=== PATIENT | female | born 1950 | race Caucasian/White ===

== ENCOUNTER 2018-06-26 12:09 | Outpatient (CLI) | payer OTHER | END 2018-06-26 15:06 | disposition home or self-care (01) | LOC: RAD 12:09 | DX: M54.2 Cervicalgia (principal); M54.6 Pain in thoracic spine; M54.5 Low back pain; M99.05 Segmental and somatic dysfunction of pelvic region ==

== ENCOUNTER → 2019-10-07 | Outpatient (CLI) | payer OTHER | END | disposition home or self-care (01) | LOC: RAD 14:45 | DX: M54.2 Cervicalgia (principal); M75.41 Impingement syndrome of right shoulder; M75.42 Impingement syndrome of left shoulder ==

== ENCOUNTER → 2021-08-16 | Outpatient (CLI) | payer OTHER | END | disposition home or self-care (01) | LOC: MRI 08:10 | DX: M17.11 Unilateral primary osteoarthritis, right knee (principal); M25.461 Effusion, right knee; M25.561 Pain in right knee | CPT/HCPCS: 73718 ==